=== PATIENT | female | born 1990 | race Two or more races ===

== ENCOUNTER 2019-01-01 09:29 | Emergency (ER) | payer SELFPAY ==
[2019-01-01 09:36] VITALS: BP 124/78; PULSE 100; TEMP 98.3; BMI 18.0
--- NOTE | 2019-01-01 10:11 | PDOC ---
*Physical Exam - Vital Signs Last Vital Signs Temp Pulse Resp BP Pulse Ox 98.3 F 100 H 18 124/78 100 01/01/19 09:34 01/01/19 09:34 01/01/19 09:34 01/01/19 09:34 01/01/19 09:34 ED Treatment Course - LABORATORY CBC & Chemistry Diagram: 01/01/19 10:25 01/01/19 10:25 Medical Decision Making - Medical Decision Making 01/01/19 10:11 Pt seen by Midlevel Provider under my direct supervision Ancillary studies reviewed I agree with plan as outlined by Midlevel Provider *DC/Admit/Observation/Transfer Diagnosis at time of Disposition: - Discharge Dispostion Disposition: HOME Condition at time of disposition: Good - Referrals Referrals: Jasbir Lay [Primary Care Provider] - - Patient Instructions Printed Discharge Instructions: Managing Symptoms of Additional Instructions: Your test was positive here. Ultrasound was done showing an intrauterine at about 5 weeks with cardiac activity. Please follow-up with your OB - Post Discharge Activity
--- NOTE | 2019-01-01 10:22 | PDOC ---
History of Present Illness - General Chief Complaint: Nausea/Vomiting Stated Complaint: VOMITING BLOOD Time Seen by Provider: 01/01/19 09:49 History Source: Patient - History of Present Illness Timing/Duration: reports: intermittent Past History - Past Medical History Allergies/Adverse Reactions: Allergies Allergy/AdvReac Type Severity Reaction Status Date / Time No Known Allergies Allergy Verified 01/01/19 09:36 Home Medications: Ambulatory Orders NK [No Known Home Medication] 01/01/19 COPD: No - Surgical History Abdominal Surgery: Yes (appedectomy) - Suicide/Smoking/Psychosocial Hx Smoking History: Never smoked Information on smoking cessation initiated: No Hx Alcohol Use: No Drug/Substance Use Hx: No Review of Systems - Review of Systems Constitutional: No: Fever ABD/GI: Yes: Diarrhea, Nausea, Vomiting. No: Abdominal cramping : No: Dysuria *Physical Exam - Vital Signs Last Vital Signs Temp Pulse Resp BP Pulse Ox 98.3 F 100 H 18 124/78 100 01/01/19 09:34 01/01/19 09:34 01/01/19 09:34 01/01/19 09:34 01/01/19 09:34 - Physical Exam General Appearance: Yes: Appropriately Dressed. No: Apparent Distress HEENT: positive: Normal Voice Neck: positive: Supple Respiratory/Chest: negative: Respiratory Distress Gastrointestinal/Abdominal: positive: Soft. negative: Tender Integumentary: positive: Dry, Warm Neurologic: positive: Fully Oriented, Alert, Normal Mood/Affect Moderate Sedation - Procedure Monitoring Vital Signs: Procedure Monitoring Vital Signs Temperature 98.3 F 01/01/19 09:34 Pulse Rate 100 H 01/01/19 09:34 Respiratory Rate 18 01/01/19 09:34 Blood Pressure 124/78 01/01/19 09:34 O2 Sat by Pulse Oximetry (%) 100 01/01/19 09:34 ED Treatment Course - LABORATORY CBC & Chemistry Diagram: 01/01/19 10:25 01/01/19 10:25 Medical Decision Making - Medical Decision Making 01/01/19 10:22 28-year-old female, denies any past medical history here with intermittent nausea, vomiting and one episode of diarrhea for the past 3-4 days. Also complaining of fatigue. No abdominal pain, bright blood per rectum, dysuria, fever or chills. Patient concerned she might be , as. Last menstrual period was 11/26/2018. States she spotted few days ago. pt See exam N/V and fatigue R/o preg, possible gastroenteritis (diven d1 e/o diarrhea) HR 100, rest of exam unremarkable -labs -zofran -reassess 01/01/19 11:19 test positive. ~7-8 weeks . No lower abdominal pain or vaginal bleed at this time, but will get ultrasound 01/01/19 11:20 01/01/19 13:31 Ultrasound read as viable IUP @ about 5 weeks with cardiac activity. Patient stable for discharge to follow-up for care *DC/Admit/Observation/Transfer Diagnosis at time of Disposition: Qualifiers: Weeks of gestation: less than 8 weeks Qualified Code(s): Z3A.01 - Less than 8 weeks gestation of - Discharge Dispostion Disposition: HOME Condition at time of disposition: Good - Referrals Referrals: Jasbir Lay [Primary Care Provider] - - Patient Instructions Printed Discharge Instructions: Managing Symptoms of Additional Instructions: Your test was positive here. Ultrasound was done showing an intrauterine at about 5 weeks with cardiac activity. Please follow-up with your OB - Post Discharge Activity
[2019-01-01] MEDS ORDERED: ONDANSETRON 4 MG TABLET PO ONE (10:33)
[2019-01-01 10:46] LABS: BASO % 0.3 % (0-2.0); EOS % 0.3 % (0-4.5); HEMATOCRIT 38.6 % (32.4-45.2); HEMOGLOBIN 13.4 GM/dL (10.7-15.3); LYMPH % 25.5 % (8-40); MCH 31.8 pg (25.7-33.7); MCHC 34.6 g/dl (32.0-36.0); MEAN PLT VOLUME 7.1 fl (7.5-11.1); MONO % 7.2 % (3.8-10.2); NEUT % 66.7 % (42.8-82.8); PLATELET COUNT 243 K/MM3 (134-434); RBC 4.19 M/mm3 (3.60-5.2); RDW 12.9 % (11.6-15.6); WHITE BLOOD COUNT 8.3 K/mm3 (4.0-10.0)
[2019-01-01] MEDS ORDERED: ONDANSETRON *ODT* 4 MG TABLET ONE (10:48)
[2019-01-01 11:07] LABS: ALBUMIN 4.2 g/dl (3.4-5.0); ALK PHOS 60 U/L (45-117); ANION GAP 8 MMOL/L (8-16); BILIRUBIN,TOTAL 0.7 mg/dL (0.2-1); BLOOD UREA NITROGEN 11 mg/dL (7-18); CALCIUM 9.1 mg/dL (8.5-10.1); CHLORIDE 104 mmol/L (98-107); CO2 25 mmol/L (21-32); CREATININE 0.6 mg/dL (0.55-1.3); GLUCOSE,RANDOM 86 mg/dL (74-106); SGOT/AST 9 U/L (15-37); SGPT/ALT 16 U/L (13-61); SODIUM 137 mmol/L (136-145); TOT PROT 7.2 g/dl (6.4-8.2)
[2019-01-01 11:09] LABS: URINE APPEARANCE SLCLOUDY; URINE BILIRUBIN NEGATIVE (<2.0 mg/dL); URINE COLOR LTYELLOW; URINE GLUCOSE (UA) NEGATIVE (NEGATIVE); URINE KETONE 1+ (NEGATIVE); URINE LEUK ESTERASE NEGATIVE (NEGATIVE); URINE NITRITE NEGATIVE (NEGATIVE); URINE PROTEIN NEGATIVE (NEGATIVE); URINE UROBILINOGEN NEGATIVE mg/dL (0.2-1.0)
[2019-01-01 11:40] LABS: EPI CELLS FEW /HPF (FEW); URINE BACTERIA RARE /hpf (NONE SEEN); URINE MUCUS RARE
== END 2019-01-01 13:45 | disposition home or self-care (01) ==
LOC: JER 09:29
DX: Z3A.01 Less than 8 weeks gestation of pregnancy (principal)
CPT/HCPCS: 36415; 76817-TC; 80053; 81003; 81015; 84703; 85025; 99282-25

== ENCOUNTER 2019-08-29 09:40 | Inpatient (IN) | payer BC ==
[2019-08-29 11:15] VITALS: BMI 26.5
[2019-08-29] MEDS ORDERED: BUTORPHANOL TARTRATE 1 MG/ML VIAL IVPB ONE (11:27)
[2019-08-29] MEDS ORDERED: PROMETHAZINE HCL 25 MG/1 ML VIAL IVPUSH ONE (11:27)
[2019-08-29 11:34] LABS: BASO % 0.3 % (0-2.0); EOS % 0.3 % (0-4.5); HEMATOCRIT 37.8 % (32.4-45.2); HEMOGLOBIN 12.7 GM/dL (10.7-15.3); LYMPH % 19.5 % (8-40); MCH 32.1 pg (25.7-33.7); MCHC 33.7 g/dl (32.0-36.0); MEAN CELL VOLUME 95.3 fl (80-96); MEAN PLT VOLUME 7.8 fl (7.5-11.1); MONO % 6.9 % (3.8-10.2); PLATELET COUNT 183 K/MM3 (134-434); RBC 3.96 M/mm3 (3.60-5.2); RDW 13.4 % (11.6-15.6); WHITE BLOOD COUNT 7.4 K/mm3 (4.0-10.0)
[2019-08-29] MEDS ORDERED: OXYTOCIN 30 UNITS in 0.9% NS 30 UNIT/500 ML INFUS.BAG IVPB ONE (11:35)
[2019-08-29 11:36] LABS: BLOOD UREA NITROGEN 9.6 mg/dL (7-18); CALCIUM 8.4 mg/dL (8.5-10.1); CREATININE 0.5 mg/dL (0.55-1.3); POTASSIUM 3.8 mmol/L (3.5-5.1)
[2019-08-29 11:37] LABS: INR 0.87 (0.83-1.09); PROTHROMBIN TIME (PATIENT) 10.3 SEC (9.7-13.0)
[2019-08-29 11:39] LABS: ACTIVATED PTT 30.1 SECONDS (25.2-36.5)
--- NOTE | 2019-08-29 11:44 | HP ---
Past Medical History - Primary Care Physician PCP:: Snow Tsang - Admission Chief Complaint: Decreased FM History of Present Illness: 28 y/o female at 40.4 weeks here for IOL 2/2 decreased FM and BPP 6/8 noted in office. complicated only by renal pyelectasis - to f/ u with peds post delivery. Cervix 4cm dilated in office last visit/90% effaced and head at 0 station. Pt c/o occ cramps, no VB/LOF. History Source: Patient, Medical Record Limitations to Obtaining History: No Limitations - Past Medical History CLINICAL ASSOCIATE: No: Migraine Cardiovascular: No: HTN Pulmonary: No: Asthma Gastrointestinal: No: GERD Hepatobiliary: No: Cholelithiasis, Hepatitis B Renal/: No: UTI ...: 2 ...Para: 1 ...Term: 1 ...LMP: 11/19/18 ... Weeks Gestation by Dates: 40.4 ...EDC by Dates: 08/25/19 ...EDC by Sono: 08/27/19 Heme/Onc: No: Anemia Infectious Disease: No: HIV, MRSA, STD's Psych: No: Bipolar, Depression - Past Surgical History Hx Myomectomy: No Hx Transabdominal Cerclage: No - Smoking History Smoking history: Never smoked Have you smoked in the past 12 months: No - Alcohol/Substance Use Hx Alcohol Use: No - Social History ADL: Independent History of Recent Travel: No Home Medications - Allergies Allergies/Adverse Reactions: Allergies Allergy/AdvReac Type Severity Reaction Status Date / Time No Known Allergies Allergy Verified 08/04/19 17:44 - Home Medications Home Medications: Ambulatory Orders Prenat 115/Iron Fum/Folic/Dss [ 19 Tablet] 1 tab PO DAILY 06/18/19 Physical Exam - Maternity Vital Signs: Vital Signs Temperature 98 F 08/29/19 11:08 Pulse Rate 91 H 08/29/19 11:08 Respiratory Rate 20 08/29/19 11:08 Blood Pressure 114/67 08/29/19 11:08 O2 Sat by Pulse Oximetry (%) Constitutional: Yes: Well Nourished, No Distress, Calm HENT: Yes: Atraumatic, Normocephalic Neck: Yes: Supple Cardiovascular: Yes: Regular Rate and Rhythm Breast(s): Yes: WNL - Abdominal Exam/OB Fundal Height: 40 Number of Fetuses: Single Presentation: Vertex Contractions: Yes Regularity: Irregular Intensity: Mild Category: I Accelerations: Uniform Decelerations: None - Vaginal Exam/OB Vaginal Bleediing: No Dilatation (cm): 4 Effacement (%): 80 Amniotic Membrane Status: Intact Presentation: Vertex/Position Station: 0 - Physical Exam Psychiatric: Yes: Alert, Oriented - Labs Lab Results: CBC, BMP 08/29/19 10:42 08/29/19 10:42 Assessment/Plan 28 y/o with SIUP at 40.4 weeks, decreased FM sent to hospital after office BPP was 6/8 plan for IOL good bishops score GBS neg start pitocin and AROM
[2019-08-29] MEDS: ELECTROLYTE-148 SOLN 1,000 ML IV SCH (12:00)
[2019-08-29] MEDS: OXYTOCIN 30 UNITS in 0.9% NS 30 UNIT/500 ML INFUS.BAG IVPB SCH (12:35)
[2019-08-29] MEDS ORDERED: ACETAMINOPHEN 325 MG TABLET (FP) ONE (16:14)
[2019-08-29] MEDS ORDERED: ACETAMINOPHEN 325 MG TABLET (FP) PO ONE (16:45)
[2019-08-29] MEDS ORDERED: LIDOCAINE HCL 1% PRESERVATIVE FREE - 30ML VIAL ONE (20:43)
[2019-08-29] MEDS ORDERED: OXYTOCIN 20 UNITS in 0.9% NS 20 UNIT/1,000 ML INFUS.BAG IV ONE (20:43)
--- NOTE | 2019-08-29 20:53 | PN ---
Progress Note (short form) - Note Progress Note: Patient seen and evaluated, she c/o moderate discomfort. FHR : Reassuring [place] : + regular contractions VE : 9/100/0 SROM ( clear ) A/P Active labor Anticipate
[2019-08-29] MEDS ORDERED: METHYLERGONOVINE MALEATE 0.2 MG/1 ML AMP IM PRN (22:01)
[2019-08-29] MEDS ORDERED: WITCH HAZEL 50% (TUCKS) 40 PAD/JAR PAD TP PRN (22:01)
[2019-08-29] MEDS ORDERED: BISACODYL 10 MG SUPP.RECT RC PRN (22:01)
[2019-08-29] MEDS ORDERED: BENZOCAINE 20% 57 GM BOTTLE TP PRN (22:01)
[2019-08-29] MEDS ORDERED: BENZOCAINE 28 GM HEMORRHOIDAL OINTMENT TP PRN (22:01)
--- NOTE | 2019-08-29 22:01 | PN ---
Delivery - Delivery Vaginal Delivery: Spontaneous Type of Anesthesia: Local Episiotomy/Laceration: 2nd degree EBL (cc): 300 Delivery, Single - Feeding Plan Initial Plan: Exclusive throughout hospitalization Remarks - Remarks Remarks: Normal spontaneous vaginal delivery of a live girl over second degree laceration. Nose / Oropharynx suctioned @ perineum. Nuchal cord x 1 cut and clamped. Baby handed to nurse. Placenta expelled spontaneously intact. Laceration repaired with 2.0 Chromic.
[2019-08-29] MEDS ORDERED: OXYTOCIN 20 UNITS in 0.9% NS 20 UNIT/1,000 ML INFUS.BAG IV SCH (22:15)
[2019-08-30] MEDS: IBUPROFEN 600 MG TABLET (FP) PO PRN ×2 (00:26→09:50)
[2019-08-30] MEDS: ACETAMINOPHEN 325 MG TABLET (FP) PO PRN ×3 (00:26→20:16)
--- NOTE | 2019-08-30 06:02 | PN ---
Post Progress Note - Subjective Subjective: 28 yo Para 2, status post vaginal delivery, seen and evaluated. Doing well Post Day: 1 Type of Delivery: Vital Signs: Vital Signs Temperature 98.1 F 08/30/19 05:55 Pulse Rate 77 08/30/19 05:55 Respiratory Rate 18 08/30/19 05:55 Blood Pressure 119/92 08/30/19 05:55 O2 Sat by Pulse Oximetry (%) 100 08/29/19 22:45 Breast Exam: Yes: Soft Uterus: Yes: Fundus Firm Abdomen/GI: Yes: Abdomen soft, Tolerating PO Lochia: Yes: Rubra Lochia, amount: Moderate Perineum: Yes: Laceration (healing) Activity: Ambulating - Labs Labs: CBC WBC 7.4 K/mm3 (4.0-10.0) 08/29/19 10:42 RBC 3.96 M/mm3 (3.60-5.2) 08/29/19 10:42 Hgb 12.7 GM/dL (10.7-15.3) 08/29/19 10:42 Hct 37.8 % (32.4-45.2) 08/29/19 10:42 MCV 95.3 fl (80-96) 08/29/19 10:42 MCH 32.1 pg (25.7-33.7) 08/29/19 10:42 MCHC 33.7 g/dl (32.0-36.0) 08/29/19 10:42 RDW 13.4 % (11.6-15.6) 08/29/19 10:42 Plt Count 183 K/MM3 (134-434) D 08/29/19 10:42 MPV 7.8 fl (7.5-11.1) 08/29/19 10:42 Absolute Neuts (auto) 5.4 K/mm3 (1.5-8.0) 08/29/19 10:42 Neutrophils % 73.0 % (42.8-82.8) 08/29/19 10:42 Lymphocytes % 19.5 % (8-40) D 08/29/19 10:42 Monocytes % 6.9 % (3.8-10.2) 08/29/19 10:42 Eosinophils % 0.3 % (0-4.5) 08/29/19 10:42 Basophils % 0.3 % (0-2.0) 08/29/19 10:42 Nucleated RBC % 0 % (0-0) 08/29/19 10:42 Problem List - Problems (1) Status post vaginal delivery Code(s): EBX6629 - Assessment/Plan Status post vaginal delivery Stable Continue routine care
[2019-08-30] MEDS: PRENATAL VITAMINS W/ FOLIC ACID TABLET (FP) PO SCH (09:50)
[2019-08-30] MEDS: FERROUS SO4 325 MG TABLET (FP) PO SCH ×2 (09:50→21:21)
[2019-08-30 09:54] LABS: BASO % 0.3 % (0-2.0); EOS % 0.1 % (0-4.5); HEMATOCRIT 34.3 % (32.4-45.2); HEMOGLOBIN 11.6 GM/dL (10.7-15.3); LYMPH % 13.7 % (8-40); MCH 31.8 pg (25.7-33.7); MCHC 33.7 g/dl (32.0-36.0); MEAN CELL VOLUME 94.4 fl (80-96); MEAN PLT VOLUME 7.1 fl (7.5-11.1); MONO % 5.2 % (3.8-10.2); NEUT % 80.7 % (42.8-82.8); PLATELET COUNT 163 K/MM3 (134-434); RBC 3.64 M/mm3 (3.60-5.2); RDW 13.3 % (11.6-15.6); WHITE BLOOD COUNT 11.2 K/mm3 (4.0-10.0)
[2019-08-30] MEDS: OXYTOCIN 30 UNITS in 0.9% NS 30 UNIT/500 ML INFUS.BAG IVPB SCH (21:51)
[2019-08-30] MEDS: ELECTROLYTE-148 SOLN 1,000 ML IV SCH (21:51)
[2019-08-30] MEDS ORDERED: SENNOSIDES/DOCUSATE COMBO (SENNA PLUS) TABLET (UD) PO PRN (22:00)
[2019-08-31] MEDS: ACETAMINOPHEN 325 MG TABLET (FP) PO PRN ×2 (03:06→13:47)
[2019-08-31] MEDS: IBUPROFEN 600 MG TABLET (FP) PO PRN ×2 (03:06→13:47)
--- NOTE | 2019-08-31 08:44 | DS ---
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 Vital Signs: Vital Signs Temperature 98.1 F 08/30/19 22:00 Pulse Rate 70 08/30/19 22:00 Respiratory Rate 18 08/30/19 22:00 Blood Pressure 110/58 L 08/30/19 22:00 O2 Sat by Pulse Oximetry (%) 100 08/29/19 22:45 Constitutional: Yes: Well Nourished Eyes: Yes: Conjunctiva Clear HENT: Yes: Atraumatic Neck: Yes: Supple Cardiovascular: Yes: Regular Rate and Rhythm Respiratory: Yes: Regular Gastrointestinal: Yes: Normal Bowel Sounds ...Rectal Exam: Yes: WNL Renal/: Yes: WNL Pelvis: Yes: WNL External Genitalia: Yes: Normal Vaginal Exam: Yes: Normal Cervix: Yes: Normal Uterus: Yes: Firm ....Post : Yes: Uterus firm, Moderate lochia serosa Breast(s): Yes: WNL Musculoskeletal: Yes: WNL Extremities: Yes: WNL Integumentary: Yes: WNL Neurological: Yes: Alert, Oriented ...Motor Strength: WNL Psychiatric: Yes: Alert, Oriented Labs: CBC, BMP 08/30/19 09:34 08/29/19 10:42 Delivery - Delivery Vaginal Delivery: Spontaneous Type of Anesthesia: Local Episiotomy/Laceration: 2nd degree EBL (cc): 300 Delivery, Single - Stages of Labor Date 1st Stage Initiatied: 08/29/19 Time 1st Stage Initiated: 12:35 Date 2nd Stage Initiated: 08/29/19 Time 2nd Stage Initiated: 21:00 Date of Delivery: 08/29/19 Time of Delivery: 21:36 Time Placenta Delivered: 21:40 - Condition of Infant English And Reading Instructor/Hydraulic Specialist Present: No Infant Gender: Female Weight: 7 lb 13 oz Position: Right, OA Total Hours ROM (Hrs/Mins): 1/6 - 1 Minute Total Score: 9 5 Minutes Total Score: 9 - [place] Feeding Plan Initial Plan: Exclusive throughout hospitalization Discharge Summary Reason For Visit: INDCUTION OF LABOR Current Active Problems Status post vaginal delivery (Acute) Procedures: Principal: Normal spontaneous vaginal delivery Hospital Course: Routine care Health Concerns: None Plan of Treatment: Routine care Goals: Full recuperation Condition: Good - Instructions Diet, Activity, Other Instructions: Regular diet No douching, no sexual intercourse x 6 weeks F/U with MD in 6 weeks Disposition: HOME - Home Medications Comprehensive Discharge Medication List: Ambulatory Orders Prenat 115/Iron Fum/Folic/Dss [ 19 Tablet] 1 tab PO DAILY 06/18/19 Prescription Drug Monitoring Program (I-STOP) results: I-STOP reviewed and no issues identified (No prescription drug)
[2019-08-31] MEDS: PRENATAL VITAMINS W/ FOLIC ACID TABLET (FP) PO SCH (09:24)
[2019-08-31] MEDS: FERROUS SO4 325 MG TABLET (FP) PO SCH (09:24)
[2019-08-31 10:45] VITALS: BP 115/66; PULSE 83; TEMP 97.9
== END 2019-08-31 17:30 | disposition home or self-care (01) | DRG 807 ==
LOC: JLDR 09:40 → J3W 23:20
PROVIDERS: ADMIT Obstetrics & Gynecology; ATTEND Obstetrics & Gynecology
PROC: 0KQM0ZZ Repair Perineum Muscle, Open Approach (ICD-10-PCS; principal; 2019-08-29)
PROC: 10E0XZZ Delivery of Products of Conception, External Approach (ICD-10-PCS; 2019-08-29)
DX: O48.0 Post-term pregnancy (principal); O70.1 Second degree perineal laceration during delivery; Z37.0 Single live birth; Z3A.40 40 weeks gestation of pregnancy
CPT/HCPCS: 36415; 59409; 80048; 85025; 85610; 85730; 86593; 86850; 86900; 86901